=== PATIENT | female | born 1980 | race Caucasian/White ===

== ENCOUNTER 2017-07-22 20:39 | Emergency (ER) | payer MEDICAID ==
[~2017-07-22] VITALS: Ht 144.8 cm; Wt 46.9 kg
[~2017-07-22 20:39] MED LIST: CLON-365 PO; INSU100C5 SQ-INSULIN; INSU100I17 SQ; INSU100I28 SQ-INSULIN; LACT1CAP35 PO; LAMO100T PO; LAMO25TA PO; LEVO150T5 PO; LEVO500T47 PO; LISI2.5T PO; QUET400T PO; SENN8.6T98 PO; SIMV20TA3 PO
[2017-07-22] MEDS ORDERED: SODIUM CHLORIDE 0.9% 1,000ML IVBOLUS ONE ×2 (21:00→22:00)
[2017-07-22] MEDS ORDERED: SODIUM CHLORIDE FLUSH 10ML SYR IVF ONE (21:00)
[2017-07-22 21:13] LABS: BASOPHILS # (AUTO) 0.07 x10^3/uL (0-0.1); BASOPHILS % (AUTO) 1 % (0-1); EOSINOPHILS # (AUTO) 0.07 x10^3/uL (0-0.4); EOSINOPHILS % (AUTO) 1 % (1-7); LYMPHOCYTES # (AUTO) 4.17 x10^3/uL (1-3.4); LYMPHOCYTES % (AUTO) 35 % (22-44); MD NO; MEAN CORPUSCULAR HEMOGLOBIN 31.4 pg (27.0-34.8); MEAN CORPUSCULAR VOLUME 92.3 fL (80-100); MEAN PLATELET VOLUME 7.3 fL (7.4-10.4); MONOCYTES # (AUTO) 0.71 x10^3/uL (0.2-0.8); MONOCYTES % (AUTO) 6 % (2-9); NEUTROPHILS # (AUTO) 6.98 x10^3/uL (1.8-6.8); NEUTROPHILS % (AUTO) 58 % (42-75); PLATELET COUNT 728 x10^3/uL (130-400); RED BLOOD COUNT 3.93 x10^6/uL (3.82-5.3); RED CELL DISTRIBUTION WIDTH 13.4 % (9.6-15.2)
[2017-07-22 21:22] LABS: ALANINE AMINOTRANSFERASE 31 U/L (12-78); ANION GAP 11 mmol/L (5-15); CALCIUM 9.2 mg/dL (8.5-10.1); CHLORIDE 96 mmol/L (98-107); CREATININE 1.35 mg/dL (0.55-1.02)
[2017-07-22 21:24] LABS: ACETONE, SERUM Trace (10mg/dL) mg/dL (Negative)
[2017-07-22 21:25] LABS: ALKALINE PHOSPHATASE 237 U/L (45-117); BILIRUBIN,TOTAL 0.3 mg/dL (0.2-1.0); TOTAL PROTEIN 8.6 g/dL (6.4-8.2)
[2017-07-22] MEDS ORDERED: DOXYCYCLINE 100MG TABLET ONE (21:51)
[2017-07-22] MEDS ORDERED: DOXYCYCLINE 100MG TABLET PO ONE (22:00)
[2017-07-22 22:41] VITALS: BP 114/75
== END 2017-07-22 22:43 | disposition home or self-care (01) ==
LOC: ED 21:44
DX: A41.9 Sepsis, unspecified organism (principal); J18.9 Pneumonia, unspecified organism; N17.9 Acute kidney failure, unspecified; J01.00 Acute maxillary sinusitis, unspecified; E86.0 Dehydration; Z90.49 Acquired absence of other specified parts of digestive tract; E11.10 Type 2 diabetes mellitus with ketoacidosis without coma; Z79.4 Long term (current) use of insulin
CPT/HCPCS: 36415; 71046; 80053; 82010; 82962; 85025; 96360; 99285; J7030

== ENCOUNTER 2017-09-17 20:25 | Emergency (ER) | payer MEDICAID ==
[~2017-09-17] VITALS: Ht 147.3 cm; Wt 47.9 kg
[2017-09-17 21:03] LABS: MEAN CORPUSCULAR HEMOGLOBIN 31.7 pg (27.0-34.8); MEAN CORPUSCULAR VOLUME 93.2 fL (80-100); MEAN PLATELET VOLUME 7.2 fL (7.4-10.4); PLATELET COUNT 523 x10^3/uL (130-400); RED BLOOD COUNT 3.83 x10^6/uL (3.82-5.3); RED CELL DISTRIBUTION WIDTH 14.3 % (9.6-15.2)
[2017-09-17 21:15] LABS: ALBUMIN 2.5 g/dL (3.4-5.0); ANION GAP 12 mmol/L (5-15); CALCIUM 8.7 mg/dL (8.5-10.1); CHLORIDE 102 mmol/L (98-107); CREATININE 1.16 mg/dL (0.55-1.02)
[2017-09-17 21:19] LABS: BASOPHILS # (AUTO) 0.02 x10^3/uL (0-0.1); BASOPHILS % (AUTO) 0 % (0-1); EOSINOPHILS # (AUTO) 0.02 x10^3/uL (0-0.4); EOSINOPHILS % (AUTO) 0 % (1-7); LYMPHOCYTES # (AUTO) 1.97 x10^3/uL (1-3.4); LYMPHOCYTES % (AUTO) 9 % (22-44); MD SCAN; MONOCYTES # (AUTO) 0.62 x10^3/uL (0.2-0.8); MONOCYTES % (AUTO) 3 % (2-9); NEUTROPHILS # (AUTO) 19.64 x10^3/uL (1.8-6.8); NEUTROPHILS % (AUTO) 88 % (42-75)
[2017-09-17] MEDS ORDERED: LEVOFLOXACIN 750 MG TABLET PO ONE (22:00)
[2017-09-17] MEDS ORDERED: LEVOFLOXACIN 750 MG TABLET ONE (22:07)
[2017-09-17 22:12] VITALS: BP 103/72
== END 2017-09-17 22:16 | disposition home or self-care (01) ==
LOC: ED 22:10
DX: J15.9 Unspecified bacterial pneumonia (principal); D72.829 Elevated white blood cell count, unspecified; F17.200 Nicotine dependence, unspecified, uncomplicated; E11.10 Type 2 diabetes mellitus with ketoacidosis without coma; Z90.49 Acquired absence of other specified parts of digestive tract
CPT/HCPCS: 36415; 71046; 80048; 82040; 85025; 93005; 99285

== ENCOUNTER 2018-10-06 12:32 | Emergency (ER) | payer MEDICAID ==
[~2018-10-06] VITALS: Ht 142.2 cm; Wt 55.5 kg
[~2018-10-06 12:32] MED LIST changes: -CLON-365 PO; +CLON1TAB11 PO; -LAMO25TA PO; +LAMO25TA9 PO
--- NOTE | 2018-10-06 12:58 | NUR ---
URINE COLLECTED/SENT TO LAB.
[2018-10-06 13:21] LABS: BASOPHILS # (AUTO) 0.13 x10^3/uL (0-0.1); BASOPHILS % (AUTO) 1 % (0-1); EOSINOPHILS # (AUTO) 0.17 x10^3/uL (0-0.4); EOSINOPHILS % (AUTO) 1 % (1-7); LYMPHOCYTES # (AUTO) 2.55 x10^3/uL (1-3.4); LYMPHOCYTES % (AUTO) 17 % (22-44); MD NO; MEAN CORPUSCULAR HEMOGLOBIN 29.6 pg (27.0-34.8); MEAN CORPUSCULAR HGB CONC 32.3 g/dL (32.4-35.8); MEAN CORPUSCULAR VOLUME 91.6 fL (80-100); MEAN PLATELET VOLUME 8.1 fL (7.4-10.4); MONOCYTES # (AUTO) 1.18 x10^3/uL (0.2-0.8); MONOCYTES % (AUTO) 8 % (2-9); NEUTROPHILS # (AUTO) 11.15 x10^3/uL (1.8-6.8); NEUTROPHILS % (AUTO) 74 % (42-75); PLATELET COUNT 366 x10^3/uL (130-400); RED CELL DISTRIBUTION WIDTH 13.4 % (9.6-15.2)
[2018-10-06 13:31] LABS: MICROSCOPIC AUTO
[2018-10-06 13:33] LABS: ALBUMIN 2.7 g/dL (3.4-5.0); ANION GAP 8 mmol/L (5-15); CALCIUM 8.6 mg/dL (8.5-10.1); CHLORIDE 104 mmol/L (98-107)
[2018-10-06 13:34] LABS: CULTURE INDICATED? YES
[2018-10-06 13:38] LABS: ALANINE AMINOTRANSFERASE 14 U/L (12-78); ALKALINE PHOSPHATASE 112 U/L (45-117); BILIRUBIN,TOTAL 0.3 mg/dL (0.2-1.0); CREATININE 1.89 mg/dL (0.55-1.02); TOTAL PROTEIN 7.8 g/dL (6.4-8.2)
--- NOTE | 2018-10-06 13:44 | NUR ---
METROLOGIST: PT TO ROOM FROM LOBBY, UPRIGHT STEADY GAIT.
--- NOTE | 2018-10-06 13:58 | NUR ---
FIRST CONTACT WITH PT. PT STATES FEVER YESTERDAY, C/O NAUSEA, R FLANK PAIN. PT STATES "I THINK I HAVE KIDNEY INFECTION OR STONES". PT DENIES DYSURIA. TEMP 98.8 HERE. PT'S AOX4. RESPS EVEN AND UNLABORED. BP/SPO2 MONITORS IN PLACE. CALL LIGHT WITHIN REACH.
[2018-10-06] MEDS ORDERED: KETOROLAC 30 MG/1 ML ONE (14:06)
[2018-10-06] MEDS ORDERED: CEFTRIAXONE PMX 1GM/50ML 50 ML ONE (14:07)
--- NOTE | 2018-10-06 14:15 | NUR ---
US AT BEDSIDE.
[2018-10-06] MEDS ORDERED: KETOROLAC 30 MG/1 ML IVPush ONE (14:30)
[2018-10-06] MEDS ORDERED: CEFTRIAXONE PMX 1GM/50ML 50 ML IV ONE (14:30)
--- NOTE | 2018-10-06 14:37 | NUR ---
PT MEDICATED PER EMAR. PT TOLERATED WELL. PT'S AOX4. RESPS EVEN AND UNLABORED.
[2018-10-06 15:39] VITALS: BP 110/62
--- NOTE | 2018-10-06 15:39 | NUR ---
pt resting in [facility]. pt's aox4. resps even and unlabored. pt states " i feel much better."
--- NOTE | 2018-10-06 16:06 | NUR ---
pt given dc instructions and scripts. pt educated regarding dc medications. pt's aox4. resps even and unlabored. pt amb to dc with steady gait. no acute distress at dc.
== END 2018-10-06 16:07 | disposition home or self-care (01) ==
LOC: ED 15:45
DX: N10 Acute pyelonephritis (principal); Z72.9 Problem related to lifestyle, unspecified; E11.10 Type 2 diabetes mellitus with ketoacidosis without coma; Z87.442 Personal history of urinary calculi; Z90.49 Acquired absence of other specified parts of digestive tract; Z79.899 Other long term (current) drug therapy
CPT/HCPCS: 36415; 76770; 80053; 81001; 83690; 85025; 87077; 87086; 87186; 96365; 96375; 99284; J0696; J1885

== ENCOUNTER 2018-12-31 13:22 | Emergency (ER) | payer MEDICAID, OTHER ==
[~2018-12-31] VITALS: Ht 144.8 cm; Wt 52.8 kg
[2018-12-31 18:07] VITALS: BP 132/57
== END 2018-12-31 18:27 | disposition left against medical advice (07) ==
LOC: ED 18:21
DX: N10 Acute pyelonephritis (principal); E11.65 Type 2 diabetes mellitus with hyperglycemia; E11.10 Type 2 diabetes mellitus with ketoacidosis without coma; F17.200 Nicotine dependence, unspecified, uncomplicated; Z90.49 Acquired absence of other specified parts of digestive tract; Z98.890 Other specified postprocedural states; Z72.9 Problem related to lifestyle, unspecified
CPT/HCPCS: 36415; 76770; 80053; 81001; 83605; 83690; 84703; 85025; 87040; 87077; 87086; 87186; 96361; 96365; 96375; 99284; J0696; J2270; J2405; J7030

== ENCOUNTER 2020-10-25 16:09 | Inpatient (IN) | payer MEDICAID ==
[~2020-10-25] VITALS: Ht 142.2 cm; Wt 49.4 kg
[~2020-10-25 16:09] MED LIST changes: +INSU100I34 SQ; -LAMO100T PO; +LAMO100T8 PO; +LEVO175T5 PO; +SIMV20TA19 PO; -SIMV20TA3 PO
--- NOTE | 2020-10-25 16:33 | NUR ---
URINE CUP PROVIDED.
--- NOTE | 2020-10-25 16:48 | NUR ---
PT STATES BLOOD IN URINE WHEN PROVIDING UA. URINE ORDERED/COLLECTED/SENT TO LAB.
[2020-10-25] MEDS ORDERED: PHENAZOPYRIDINE 200 MG TABLET PO ONE (17:00)
[2020-10-25 17:11] LABS: MICROSCOPIC AUTO
[2020-10-25 18:03] LABS: MEAN CORPUSCULAR HEMOGLOBIN 31.1 pg (27.0-34.8); MEAN CORPUSCULAR HGB CONC 33.9 g/dL (32.4-35.8); MEAN PLATELET VOLUME 7.7 fL (7.4-10.4); PLATELET COUNT 391 x10^3/uL (130-400); RED BLOOD COUNT 4.16 x10^6/uL (3.82-5.3); RED CELL DISTRIBUTION WIDTH 12.8 % (9.6-15.2)
[2020-10-25 18:13] LABS: ALANINE AMINOTRANSFERASE 30 U/L (12-78); ALBUMIN 3.5 g/dL (3.4-5.0); ANION GAP 9 mmol/L (5-15); CALCIUM 8.8 mg/dL (8.5-10.1); CHLORIDE 103 mmol/L (98-107); CREATININE 1.33 mg/dL (0.55-1.02)
[2020-10-25 18:17] LABS: ALKALINE PHOSPHATASE 102 U/L (45-117); BILIRUBIN,TOTAL 0.5 mg/dL (0.2-1.0); TOTAL PROTEIN 8.1 g/dL (6.4-8.2)
[2020-10-25 18:19] LABS: LYMPH#(MANUAL) 2.28 x10^3/uL (1-3.4); LYMPHS% (MANUAL) 11 % (22-44); MONOS#(MANUAL) 1.66 x10^3/uL (0.3-2.7); MONOS% (MANUAL) 8 % (2-9); SEG#(MANUAL) 16.77 x10^3/uL (1.8-6.8); SEGS% (MANUAL) 81 % (42-75)
[2020-10-25 18:20] LABS: <PLATELET ESTIMATE> ADEQUATE; <RBC MORPHOLOGY> NORMAL; LARGE PLATELETS 1+
[2020-10-25] MEDS ORDERED: SODIUM CHLORIDE 0.9% 1,000ML IVBOLUS ONE (19:30)
[2020-10-25] MEDS ORDERED: CEFTRIAXONE 1,000 MG in DEXTROSE 5% 50 ML IVPB ONE (19:30)
[2020-10-25] MEDS ORDERED: ONDANSETRON 2MG/ML, 2ML IVPush ONE (19:30)
[2020-10-25] MEDS ORDERED: MORPHINE SULFATE 4 MG/ML, 1ML IVPush PRN (19:30)
[2020-10-25] MEDS ORDERED: PHENAZOPYRIDINE 200 MG TABLET ONE (19:56)
[2020-10-25] MEDS ORDERED: MORPHINE SULFATE 4 MG/ML, 1ML ONE (19:56)
[2020-10-25] MEDS ORDERED: ONDANSETRON 2MG/ML, 2ML ONE (19:57)
[2020-10-25 20:56] LABS: MICROSCOPIC INDICATED
--- NOTE | 2020-10-25 22:17 | NUR ---
PT REPORT TO LEENA BOBBY
[2020-10-25] MEDS ORDERED: LISI-170 PO (22:22)
[2020-10-25] MEDS ORDERED: ATOR20TA PO (22:22)
[2020-10-25] MEDS ORDERED: POLYETHYLENE GLYCOL 17 GM PACKET PO PRN (22:30)
[2020-10-25] MEDS ORDERED: TEMPLATE NON-FORMULARY MED. (Insulin Aspart** (Novolog**) 0 UNITS) SQ-INSULIN SCH (22:30)
[2020-10-25] MEDS ORDERED: INSULIN GLARGINE 100 UNITS/ML, PEN SQ-INSULIN SCH (22:30)
[2020-10-25] MEDS ORDERED: DIPHENHYDRAMINE 25 MG CAPSULE PO PRN (22:30)
[2020-10-25] MEDS ORDERED: BISACODYL 10 MG SUPP PR PRN (22:30)
[2020-10-25 22:33] VITALS: BP 151/82
[2020-10-25] MEDS: INSULIN LISPRO 100 UNITS/ML, PEN SQ-INSULIN SCH (23:12)
[2020-10-25] MEDS: SODIUM CHLORIDE 0.9% 1,000 ML IV SCH (23:37)
[2020-10-25] MEDS: ACETAMINOPHEN 325 MG TABLET PO PRN (23:45)
[2020-10-26 01:45] VITALS: BP 163/73
[2020-10-26 05:55] LABS: BASOPHILS % (AUTO) 0 % (0-1); EOSINOPHILS % (AUTO) 2 % (1-7); LYMPHOCYTES % (AUTO) 20 % (22-44); MEAN CORPUSCULAR HEMOGLOBIN 31.2 pg (27.0-34.8); MEAN PLATELET VOLUME 7.5 fL (7.4-10.4); MONOCYTES % (AUTO) 11 % (2-9); NEUTROPHILS % (AUTO) 66 % (42-75); PLATELET COUNT 305 x10^3/uL (130-400); RED BLOOD COUNT 3.91 x10^6/uL (3.82-5.3); RED CELL DISTRIBUTION WIDTH 13.1 % (9.6-15.2)
[2020-10-26 06:08] LABS: ANION GAP 7 mmol/L (5-15); CALCIUM 8.4 mg/dL (8.5-10.1); CHLORIDE 113 mmol/L (98-107)
[2020-10-26 06:09] LABS: CREATININE 1.01 mg/dL (0.55-1.02)
[2020-10-26] MEDS: ACETAMINOPHEN 325 MG TABLET PO PRN (06:31)
[2020-10-26] MEDS: INSULIN LISPRO 100 UNITS/ML, PEN SQ-INSULIN SCH ×4 (07:00→21:07)
[2020-10-26] MEDS ORDERED: NICOTINE 21 MG/24 HR PATCH.TD24 TD ONE (07:00)
[2020-10-26 07:35] VITALS: BP 149/78
[2020-10-26] MEDS: LEVOTHYROXINE 175 MCG TABLET PO SCH (08:06)
[2020-10-26] MEDS: SODIUM CHLORIDE 0.9% 1,000 ML IV SCH ×2 (08:06→18:23)
[2020-10-26] MEDS: SENNA/DOCUSATE TABLET PO SCH (08:06)
[2020-10-26] MEDS ORDERED: INSULIN GLARGINE 100 UNITS/ML, PEN SQ-INSULIN SCH (09:00)
[2020-10-26] MEDS: INSULIN GLARGINE 100 UNITS/ML, PEN SQ-INSULIN SCH (09:13)
[2020-10-26] MEDS: ONDANSETRON ODT 4 MG PO PRN ×2 (10:18→21:18)
[2020-10-26] MEDS: CEFTRIAXONE 2,000 MG in DEXTROSE 5% 50 ML IVPB SCH (11:26)
[2020-10-26 12:44] VITALS: BP 147/74
[2020-10-26] MEDS ORDERED: BUTALB/APAP/CAFFEINE 50MG/325MG/40MG PO ONE (14:30)
[2020-10-26 19:32] VITALS: BP 162/82
[2020-10-26] MEDS ORDERED: CEFTRIAXONE 1,000 MG in DEXTROSE 5% 50 ML IVPB SCH (20:30)
[2020-10-26] MEDS ORDERED: CEFTRIAXONE 2,000 MG in DEXTROSE 5% 50 ML IVPB SCH (20:30)
[2020-10-26] MEDS ORDERED: ATORVASTATIN 20 MG TABLET PO SCH (21:00)
[2020-10-26] MEDS: morphine SULFATE 10 MG/ML, 1ML IVPush PRN (21:17)
[2020-10-26 22:03] VITALS: BP 153/67
[2020-10-27 02:23] VITALS: BP 134/74
[2020-10-27] MEDS: SODIUM CHLORIDE 0.9% 1,000 ML IV SCH ×2 (04:30→14:30)
[2020-10-27] MEDS: LEVOTHYROXINE 175 MCG TABLET PO SCH (05:18)
[2020-10-27 07:07] VITALS: BP 152/78
[2020-10-27] MEDS: INSULIN LISPRO 100 UNITS/ML, PEN SQ-INSULIN SCH ×2 (07:22→11:00)
[2020-10-27] MEDS: INSULIN GLARGINE 100 UNITS/ML, PEN SQ-INSULIN SCH (08:25)
[2020-10-27] MEDS: SENNA/DOCUSATE TABLET PO SCH (09:00)
[2020-10-27] MEDS ORDERED: INSULIN GLARGINE 100 UNITS/ML, PEN SQ-INSULIN SCH (09:00)
[2020-10-27] MEDS ORDERED: LISI-606 PO (09:09)
[2020-10-27] MEDS ORDERED: LISINOPRIL 10 MG TABLET ONE (09:18)
[2020-10-27] MEDS ORDERED: NICOTINE 21 MG/24 HR PATCH.TD24 ONE (09:18)
[2020-10-27] MEDS ORDERED: LISINOPRIL 5 MG TABLET PO SCH (09:30)
[2020-10-27] MEDS ORDERED: NICOTINE 21 MG/24 HR PATCH.TD24 TD SCH (09:30)
[2020-10-27] MEDS ORDERED: CEFD300C37 PO (09:59)
[2020-10-27] MEDS: ACETAMINOPHEN 325 MG TABLET PO PRN (11:01)
[2020-10-27] MEDS: ONDANSETRON ODT 4 MG PO PRN (11:02)
[2020-10-27] MEDS: CEFTRIAXONE 2,000 MG in DEXTROSE 5% 50 ML IVPB SCH (11:30)
[2020-10-27] MEDS: morphine SULFATE 10 MG/ML, 1ML IVPush PRN (11:35)
[2020-10-27 12:46] VITALS: BP 172/82
[2020-10-28] MEDS ORDERED: LISINOPRIL 5 MG TABLET PO SCH (09:00)
[2020-10-30] MEDS ORDERED: CEFD300C37 PO (16:42)
== END 2020-10-27 15:18 | disposition home or self-care (01) | DRG 720 ==
LOC: ED 20:33 → EDIP 20:56 → 3N 22:25
PROVIDERS: ADMIT Internal Medicine; ATTEND Hospitalist
DX: A41.51 Sepsis due to Escherichia coli [E. coli] (principal); E10.22 Type 1 diabetes mellitus with diabetic chronic kidney disease; N18.32 Chronic kidney disease, stage 3b; E03.9 Hypothyroidism, unspecified; F12.90 Cannabis use, unspecified, uncomplicated; F17.210 Nicotine dependence, cigarettes, uncomplicated; F31.9 Bipolar disorder, unspecified; F41.1 Generalized anxiety disorder; G47.00 Insomnia, unspecified; I12.9 Hypertensive chronic kidney disease with stage 1 through stage 4 chronic kidney disease, or unspecified chronic kidney disease; N12 Tubulo-interstitial nephritis, not specified as acute or chronic; N20.0 Calculus of kidney; Z79.4 Long term (current) use of insulin; Z82.49 Family history of ischemic heart disease and other diseases of the circulatory system; Z83.3 Family history of diabetes mellitus; Z90.49 Acquired absence of other specified parts of digestive tract
CPT/HCPCS: 36415; 74176; 80048; 80053; 81001; 82962; 83036; 83605; 84145; 84703; 85025; 87040; 87077; 87086; 87186; 96361; 96374; 99291; G0378; J0696; J2405; Q0162; J1815; J2270; J7030; Q0163